=== PATIENT | male | born 1945 | race Caucasian/White ===

== ENCOUNTER 2021-09-25 08:43 | Outpatient (CLI) | payer MEDICARE, OTHER | END 2021-09-25 08:44 | disposition home or self-care (01) | LOC: CSHMRI 08:43 | PROVIDERS: ATTEND Anesthesiology Pain Medicine | DX: M54.16 Radiculopathy, lumbar region (principal); M41.86 Other forms of scoliosis, lumbar region; M47.816 Spondylosis without myelopathy or radiculopathy, lumbar region | CPT/HCPCS: 72148 ==

== ENCOUNTER 2022-11-26 08:32 | Outpatient (CLI) | payer MEDICARE, OTHER ==
[2022-11-22 14:53] VITALS: BMI 29.2
[2022-11-26] MEDS ORDERED: Lidocaine 1% PF 5 ML VIAL ONE ×2 (09:58→10:58)
[2022-11-26] MEDS ORDERED: Sodium Bicarbonate 2.5 MEQ/5 ML VIAL ONE (09:59)
[2022-11-26 11:48] VITALS: BP 152/68; TEMP 98.5
== END 2022-11-26 08:33 | disposition home or self-care (01) ==
LOC: CSHMRI 08:32
PROVIDERS: ATTEND Surgery
DX: M54.16 Radiculopathy, lumbar region (principal); M54.6 Pain in thoracic spine; M47.12 Other spondylosis with myelopathy, cervical region; M47.816 Spondylosis without myelopathy or radiculopathy, lumbar region; Z98.890 Other specified postprocedural states; M47.814 Spondylosis without myelopathy or radiculopathy, thoracic region; M47.812 Spondylosis without myelopathy or radiculopathy, cervical region
CPT/HCPCS: 62304; 72132; 72141; 72146